=== PATIENT | female | born 1990 | race Caucasian/White ===

== ENCOUNTER 2016-05-17 10:49 | Emergency (ER) | payer OTHER ==
[~2016-05-17] VITALS: Ht 160 cm; Wt 80.0 kg
[~2016-05-17 10:49] MED LIST: ACET500C5 PO; ALBU8.5H3 INH; IBUP-1542 PO
[2016-05-17 10:54] VITALS: Ht 160 cm; Wt 80.0 kg
[2016-05-17] MEDS ORDERED: KETOROLAC 30 MG INJ IM STA (13:10)
[2016-05-17 13:23] LABS: URINE BLOOD (Dip) POC 2+ (NEGATIVE)
--- NOTE | 2016-05-17 13:53 | ERD ---
ER Documentation Chief Complaint Date/Time DATE: 05/17/16 TIME: 13:49 Chief Complaint LOWER BACK PAIN X 3 WEEKS HPI This is 25 year old female who presents to emergency department today complaining of low back pain for the past month. She states it is gotten worse over the past week and has worsening pain with sitting and laying down. Unsure she has had some dysuria.Denies any fevers or chills, loss of bowel or bladder control. ROS All systems reviewed and are negative except as per history of present illness. Medications Home Meds Active Scripts Cyclobenzaprine Hcl* (Cyclobenzaprine Hcl*) 10 Mg Tablet, 10 MG PO QHS, #7 TAB Prov:DORINDA RAMIREZ-C 05/17/16 Naproxen* (Naprosyn*) 500 Mg Tablet, 500 MG PO BID Y for PAIN AND/OR INFLAMMATION, #30 TAB Prov:DROINDA RAMIREZ-C 05/17/16 Tramadol HCl (Tramadol HCl) 50 Mg Tablet, 50 MG PO Q4 Y for PAIN, #20 TAB Prov:DORINDA RAMIREZ-C 05/17/16 Acetaminophen* (Tylophen*) 500 Mg Capsule, 1 CAP PO Q6H Y for PAIN AND OR ELEVATED TEMP, #20 CAP Prov:MARKO BRASWELL NP 12/01/15 Ibuprofen* (Motrin*) 600 Mg Tab, 600 MG PO Q6H Y for PAIN AND OR ELEVATED TEMP, #30 Prov:GRACE LEE MD 12/01/14 Reported Medications Albuterol Sulfate* (Proair HFA*) Unknown Strength Hfa.aer.ad, INH Q4H Y for WHEEZING AND SOB, #1 INHALER 12/01/15 Allergies Allergies: Coded Allergies: No Known Allergy (Unverified , 12/01/14) PMhx/Soc History of Surgery: No Anesthesia Reaction: No Hx Neurological Disorder: No Hx Respiratory Disorders: Yes (ASTHMA) Hx Cardiac Disorders: No Hx Psychiatric Problems: Yes (anxiety, depression) Hx Miscellaneous Medical Probl: No Hx Alcohol Use: No Hx Substance Use: No Hx Tobacco Use: No Smoking Status: Never smoker Physical Exam Vitals Vital Signs Date Time Temp Pulse Resp B/P Pulse Ox O2 Delivery O2 Flow Rate FiO2 05/17/16 10:54 98.1 62 18 110/58 100 Physical Exam Const: Obese, Mild distress Head: Atraumatic Eyes: Normal Conjunctiva ENT: Normal External Ears, Nose and Mouth. Neck: Full range of motion..~ No meningismus. Resp: Clear to auscultation bilaterally Cardio: Regular rate and rhythm, no murmurs Abd: Soft, non tender, non distended. Normal bowel sounds Skin: No petechiae or rashes Back: #Midline tenderness and bilateral paraspinal tenderness. Unable to perform straight leg raise secondary to pain. Pulses 2+ protein distal neurovascularly intact. No CVA tenderness Ext: No cyanosis, or edema Neur: Awake and alert Psych: Normal Mood and Affect Results 24 hrs Laboratory Tests Test 05/17/16 13:24 Bedside Urine Blood 2+ Bedside Urine Glucose (UA) Negative Bedside Urine Ketones (LAB) Negative Bedside Urine Leukocyte Esterase (L Negative Bedside Urine Nitrite (LAB) Negative Bedside Urine Protein (LAB) Negative Bedside Urine pH (LAB) 5.5 Current Medications Medications (Trade) Dose Ordered Sig/Sandie Route PRN Reason Start Time Stop Time Status Last Admin Dose Admin Ketorolac Tromethamine (Toradol) 30 mg ONCE STAT IM 05/17/16 13:10 05/17/16 13:12 DC 05/17/16 13:34 DIAGNOSTIC IMAGING REPORT Patient: GAEL OLIVO : 1990 Age: 25 Sex: F MR #: [id number] DOS: 05/17/16 0000 Ordering MD: DORINDA RAMIREZ PA-C Location: [facility] Room/Bed: PROCEDURE: XR, lumbosacral spine. CLINICAL INDICATION: Back pain. TECHNIQUE: 2 views of the lumbar spine were obtained. COMPARISON: No prior studies are available for comparison. FINDINGS: There is preservation of the normal lumbar lordosis. There is normal vertebral alignment. No fracture or subluxation is seen. The disc spaces and vertebral heights are well maintained. The posterior elements are unremarkable. The soft tissues appear normal. The sacroiliac joints are normal. IMPRESSION: 1. Unremarkable lumbosacral spine. RPTAT: GG .Christopher Juan Carlos, MD, MD Date Time Electronically viewed and signed by .Christopher Rangel MD, MD on 05/17/2016 14:13 .Y/ CC: DROINDA RAMIREZ PA-C Procedures/MDM His is a 25-year-old female who presents the emergency department today complaining of low back pain for the past month. I did obtain a UA as well as an imaging given that duration of her symptoms. Patient is a poor historian and was unable to answer whether she had dysuria or nausea or vomiting. UA shows 2+ hematuria. Negative for infection. She denied being on her menstrual cycle at this time although she states that it is irregular. Lumbar spine images show unremarkable lumbar spine. There is no acute fracture or subluxation. Disc spaces and vertebral heights are all well maintained. He is afebrile and otherwise well-appearing. She has no loss of bowel or bladder control and I have low suspicion for cauda equina or abscess. There is no evidence of pilonidal abscess. Patient's symptoms at this time more consistent with musculoskeletal strain versus sprain however patient did have 2 + hematuria and it is possible that she may have some stones in her kidneys. I have explained this to her. I do not feel the patient requires laboratory workup or imaging at this time again she is afebrile and has no CVA tenderness or nausea or vomiting. Low suspicion for pyelonephritis. I have explained to the patient she needs a follow-up with her primary care doctor within the next week and see if her hematuria has resolved. Patient understood. Patient's symptoms at this time most consistent with lumbar sprain versus strain. Patient was given Toradol here in the emergency department and pain improved. She was given a prescription for tramadol, Naprosyn and Flexeril for home. At this time the patient is stable for discharge and outpatient management. Patient should follow up with their PCP in the next 1-2 days. They may return to the emergency department sooner for any persistent or worsening of symptoms. Patient understood and agreed with the plan. Discussed the patient with Dr. Thorne and he is in agreement with the plan. Departure Diagnosis: Primary Impression: Back pain Back pain location: low back pain Chronicity: unspecified Back pain laterality: bilateral Sciatica presence: without sciatica Qualified Code: M54.5 - Bilateral low back pain without sciatica, unspecified chronicity Additional Impression: Hematuria Condition: Fair DORINDA RAMIREZ PA-C May 17, 2016 13:53
--- NOTE | 2016-05-17 14:13 | RADRPT ---
PROCEDURE: XR, lumbosacral spine. CLINICAL INDICATION: Back pain. TECHNIQUE: 2 views of the lumbar spine were obtained. COMPARISON: No prior studies are available for comparison. FINDINGS: There is preservation of the normal lumbar lordosis. There is normal vertebral alignment. No fract ure or subluxation is seen. The disc spaces and vertebral heights are well maintained. The posteri or elements are unremarkable. The soft tissues appear normal. The sacroiliac joints are normal. IMPRESSION: 1. Unremarkable lumbosacral spine. RPTAT: GG .Christopher Rangel MD, MD Date Time Electronically viewed and signed by .Christopher Rangel MD, on 05/17/2016 14:13 .Y/
[2016-05-17] MEDS ORDERED: TRAM50TA2 PO (14:31)
[2016-05-17] MEDS ORDERED: NAPR-260 PO (14:31)
[2016-05-17] MEDS ORDERED: CYCL-319 PO (14:32)
[2016-05-17 14:42] VITALS: BP 124/71; PULSE 83; RESP 20; TEMP 98.3
== END 2016-05-17 14:43 | disposition home or self-care (01) ==
LOC: FTE 10:49
DX: M54.5 Low back pain (principal); R31.9 Hematuria, unspecified; E66.9 Obesity, unspecified; Z68.31 Body mass index [BMI] 31.0-31.9, adult
CPT/HCPCS: 72100; 81003; 96372; J1885; Z7502

== ENCOUNTER 2018-03-04 15:44 | Emergency (ER) | END 2018-03-04 17:50 | disposition home or self-care (01) ==